=== PATIENT | female | born 1965 | race Caucasian/White ===

== ENCOUNTER 2021-11-09 14:07 | Inpatient (IN) | payer MEDICARE, MEDICAID ==
[~2021-11-09] VITALS: Ht 165.1 cm; Wt 80.1 kg
[2021-11-09 15:04] LABS: HEMOGLOBIN 15.8 gm/dl (12.3-15.3); RED BLOOD COUNT 5.32 M/UL (4.00-5.10); WHITE BLOOD COUNT 12.3 K/UL (4.5-11.0)
[2021-11-09 16:06] LABS: BUN/CREATININE RATIO 34 (0-10)
--- NOTE | 2021-11-09 22:12 | NUR ---
APPROX. 2212: NOTIFIED LIBRARY SCIENCE INSTRUCTOR THAT THE PATIENT HAD PCU ORDERS. APPROX. 2225: LIBRARY SCIENCE INSTRUCTOR CALLED RN AND STATED TO TRANSFER THE PATIENT TO PCU, ROOM 6108. APPROX. 2226: CALLED REPORT TO FELICIA ON PCU. APPROX. 2235: RN AND SECRETARY OFFICE CLERK TRANSFERRED PATIENT TO PCU, ROOM 6108. PATIENT STABLE AT THE TIME OF TRANSFER.
[2021-11-10] MEDS ORDERED: SYMBICORT 16010.2 GM INH (02:34)
[2021-11-10] MEDS ORDERED: ALDACTONE 25MG25 MG PO (02:36)
[2021-11-10] MEDS ORDERED: AMITRIPTYLINE H25 MG PO (02:37)
[2021-11-10] MEDS ORDERED: ASPIRIN EC81 MG PO (02:37)
[2021-11-10] MEDS ORDERED: CARVEDILOL6.25 MG PO (02:38)
[2021-11-10] MEDS ORDERED: ATORVASTATIN CA40 MG PO (02:38)
[2021-11-10] MEDS ORDERED: CYCLOBENZAPRINE10 MG PO (02:39)
[2021-11-10] MEDS ORDERED: METFORMIN HCL1000 MG PO (02:40)
[2021-11-10] MEDS ORDERED: ISOSORBIDE MONO30 MG PO (02:40)
[2021-11-10] MEDS ORDERED: NITROGLYCERIN0.4 MG SL (02:41)
[2021-11-10] MEDS ORDERED: TOPIRAMATE50 MG PO (02:42)
[2021-11-10] MEDS ORDERED: PROTONIX 40 MG40 M1 PO (02:42)
[2021-11-10] MEDS ORDERED: TRAZODONE HCL150 MG PO (02:43)
[2021-11-10] MEDS ORDERED: FARXIGA5 MG PO (02:44)
[2021-11-10] MEDS ORDERED: BASAGLAR K100 UNIT/1 SC (02:46)
[2021-11-10 03:50] LABS: HEMOGLOBIN 14.1 gm/dl (12.3-15.3); RED BLOOD COUNT 4.86 M/UL (4.00-5.10); WHITE BLOOD COUNT 11.4 K/UL (4.5-11.0)
[2021-11-10 04:27] LABS: BUN/CREATININE RATIO 29 (0-10)
[2021-11-10] MEDS ORDERED: PROAIR HFA8.5 GM INH (11:07)
[2021-11-11 02:43] LABS: BUN/CREATININE RATIO 31 (0-10)
[2021-11-12 03:01] LABS: HEMOGLOBIN 14.2 gm/dl (12.3-15.3); RED BLOOD COUNT 4.88 M/UL (4.00-5.10)
[2021-11-12 03:36] LABS: BUN/CREATININE RATIO 35 (0-10)
[2021-11-12] MEDS ORDERED: IPRAT-ALBUT 0.5-3 ML NEB (12:36)
[2021-11-12] MEDS ORDERED: BASAGLAR K100 UNIT/1 SC (12:36)
[2021-11-12] MEDS ORDERED: BROVANA15 MCG/2 M NEB (12:36)
[2021-11-12] MEDS ORDERED: ISOSORBIDE MONO60 MG PO (12:40)
== END 2021-11-12 15:20 | disposition home or self-care (01) | DRG 303 ==
LOC: ER1 14:07 → CDU 18:46 → PROG CARE 18:46 → CDU 18:46 → M/S 22:04 → PROG CARE 22:29
PROVIDERS: Emergency Medicine; Internal Medicine; ADMIT Internal Medicine Infectious Disease
PROC: 4A12XM4 Monitoring of Cardiac Stress, External Approach (ICD-10-PCS; principal; 2021-11-12)
DX: I25.110 Atherosclerotic heart disease of native coronary artery with unstable angina pectoris (principal); E11.65 Type 2 diabetes mellitus with hyperglycemia; K21.9 Gastro-esophageal reflux disease without esophagitis; E86.0 Dehydration; I10 Essential (primary) hypertension; J44.9 Chronic obstructive pulmonary disease, unspecified; F17.210 Nicotine dependence, cigarettes, uncomplicated; I25.2 Old myocardial infarction; Z79.899 Other long term (current) drug therapy; Z88.8 Allergy status to other drugs, medicaments and biological substances; Z79.4 Long term (current) use of insulin; Z90.710 Acquired absence of both cervix and uterus; Z90.49 Acquired absence of other specified parts of digestive tract; Z82.49 Family history of ischemic heart disease and other diseases of the circulatory system; Z79.82 Long term (current) use of aspirin; Z95.5 Presence of coronary angioplasty implant and graft
CPT/HCPCS: 36415; 71045; 78452; 80048; 80053; 82009; 82550; 82553; 82962; 83036; 83735; 84484; 85025; 85027; 85610; 85730; 93005; 94640; 94664; 94760; 96374; 96376; 99285; A9505; C9113; G0378; J1644; J1650

== ENCOUNTER → 2021-12-11 | Outpatient (CLI) | payer MEDICARE ==
[~2021-12-11] MED LIST: ALDACTONE 25MG25 MG PO; AMITRIPTYLINE H25 MG PO; ASPIRIN EC81 MG PO; ATORVASTATIN CA40 MG PO; BASAGLAR K100 UNIT/1 SC; BROVANA15 MCG/2 M NEB; CARVEDILOL6.25 MG PO; CYCLOBENZAPRINE10 MG PO; FARXIGA5 MG PO; IPRAT-ALBUT 0.5-3 ML NEB; ISOSORBIDE MONO30 MG PO; ISOSORBIDE MONO60 MG PO; METFORMIN HCL1000 MG PO; NITROGLYCERIN0.4 MG SL; PROAIR HFA8.5 GM INH; PROTONIX 40 MG40 M1 PO; SYMBICORT 16010.2 GM INH; TOPIRAMATE50 MG PO; TRAZODONE HCL150 MG PO
== END ==
LOC: ECHO 13:15
DX: R07.9 Chest pain, unspecified (principal); R06.02 Shortness of breath
CPT/HCPCS: ECHO; 93306

== ENCOUNTER → 2022-01-14 | Outpatient (CLI) | payer MEDICARE | LOC: HEART 5 15:15 | DX: R55 Syncope and collapse (principal) ==